=== PATIENT | male | born 1975 | race Caucasian/White ===

== ENCOUNTER 2018-01-19 22:16 | Inpatient (IN) ==
[2018-01-19] MEDS ORDERED: Sod Chloride 0.9% Inj 1,000 ML IV.SIG SCH (23:45)
[2018-01-20] LABS: Baso # (Auto) 0.1 th/mm3 (0.0-0.2); Baso % (Auto) 0.5 % (0.0-2.0); Eos # (Auto) 0.1 th/mm3 (0.0-0.4); Eos % (Auto) 0.9 % (0.0-4.0); Hematocrit 47.4 % (39.0-51.0); Hemoglobin 16.1 gm/dL (13.0-17.0); Lymph # (Auto) 3.1 th/mm3 (1.0-4.8); Lymph % (Auto) 20.7 % (9.0-44.0); Mean Corpuscular Hemoglobin 28.4 pg (27.0-34.0); Mean Corpuscular Volume 83.5 fL (80.0-100.0); Mean Platelet Volume 8.6 fL (7.0-11.0); Mono # (Auto) 1.4 th/mm3 (0.0-0.9); Mono % (Auto) 9.7 % (0.0-8.0); Neut # (Auto) 10.2 th/mm3 (1.8-7.7); Neut % (Auto) 68.2 % (16.0-70.0); Platelet Count 361 th/mm3 (150-450); Red Blood Count 5.68 mil/mm3 (4.50-5.90); Red Cell Distribution Width 13.4 % (11.6-17.2)
[2018-01-20 00:11] LABS: Amphetamine Screen,Urine Neg (Neg); Barbiturate Screen,Urine Neg (Neg); Cannabinoid Screen,Urine Neg (Neg); Cocaine Screen,Urine Neg (Neg)
[2018-01-20 00:13] LABS: Bacteria,Urine Moderate /hpf; Bilirubin,Urine Negative (Negative); Color,Urine Amber (Yellw/Straw); Glucose,Urine (UA) Negative (Negative); Hyaline Casts,Urine 16 /lpf (0-3); Leukocyte Esterase,Urine Negative (Negative); Mucus,Urine Many /lpf (Occasional); Nitrite,Urine Negative (Negative)
[2018-01-20 00:18] LABS: Opiate Screen,Urine Neg (Neg)
[2018-01-20 00:20] LABS: Clarity,Urine Hazy (Clear)
[2018-01-20 00:31] LABS: Alanine Aminotransferase 57 U/L (12-78); Albumin 4.2 g/dL (3.4-5.0); Anion Gap 11 meq/L (5-15); Aspartate Aminotransferase 51 U/L (15-37); Blood Urea Nitrogen 16 mg/dL (7-18); Calcium 9.3 mg/dL (8.5-10.1); Carbon Dioxide 25.3 meq/L (21.0-32.0); Chloride 108 meq/L (98-107); Glomerular Filtration Rate 60 mL/min (>89); Glucose,Random 97 mg/dL (74-106); Potassium 3.5 meq/L (3.5-5.1); Sodium 144 meq/L (136-145)
[2018-01-20 00:41] LABS: Alkaline Phosphatase 74 U/L (45-117); Total Protein 9.1 g/dL (6.4-8.2)
[2018-01-20] MEDS ORDERED: Sod Chloride 0.9% Inj 1,000 ML IV.SIG SCH (01:00)
--- NOTE | 2018-01-20 01:09 | CT ---
EXAM DATE: 01/20/2018 12:48 AM EDT AGE/SEX: 42 years / Male INDICATIONS: Altered mental status. CLINICAL DATA: This is the patient's initial encounter. Patient reports that signs and symptoms have been present for 1 day and indicates a pain score of Nonresponsive. MEDICAL/SURGICAL HISTORY: Non-responsive. Non-responsive. RADIATION DOSE: 56.35 CTDI (mGy) COMPARISON: No prior exams available for comparison. TECHNIQUE: CT of the head without contrast. Using automated exposure control and adjustment of the mA and/or kV according to patient size, radiation dose was kept as low as reasonably achievable to ob tain optimal diagnostic quality images. DICOM format image data is available electronically for revi ew and comparison. FINDINGS: Cerebrum: The ventricles are normal for age. No evidence of midline shift, mass lesion, hemorrhage o r acute infarction. No extraaxial fluid collections are seen. Posterior Fossa: The cerebellum and brainstem are intact. The 4th ventricle is midline. The cerebe llopontine angle is unremarkable. Extracranial: The visualized portion of the orbits is intact. Skull: The calvaria is intact. No evidence of skull fracture. CONCLUSION: 1. No acute intracranial abnormality. . Electronically signed by: Usama Hernadez MD 01/20/2018 1:07 AM EDT
--- NOTE | 2018-01-20 01:23 | XR ---
EXAM DATE: 01/20/2018 1:15 AM EDT AGE/SEX: 42 years / Male INDICATIONS: Altered mental status. CLINICAL DATA: This is the patient's initial encounter. Patient reports that signs and symptoms have been present for 1 day and indicates a pain score of 0/10. MEDICAL/SURGICAL HISTORY: Non-responsive. Non-responsive. COMPARISON: No prior exams available for comparison. FINDINGS: Minimal bibasilar airspace disease. Cardiomediastinal contours are within normal limits. Bony thorax is intact. CONCLUSION: 1. Minimal bibasilar airspace disease, likely atelectasis. Electronically signed by: Usama Hernadez MD 01/20/2018 1:21 AM EDT
--- NOTE | 2018-01-20 03:02 | ED ---
HPI General Chief Complaint: Psychiatric Symptoms Stated Complaint: Psych eval/OBPD Source: patient and EMS Mode of arrival: EMS Limitations: no limitations History of Present Illness HPI Narrative: 42-year-old male presents to the emergency department by EMS transport after please found patient wandering in a [employer] parking lot trying to break into cars. Patient here offers no medical history answers simple yes no to questions denies any recent injury or fall denies any recent fever and denies pain. Patient denies any medical history. No previous evaluations in our EMR. Patient denies any known prior psychiatric history. MD complaint: altered mental status Onset (ago): unknown Duration: constant (This evening since found by police) History of same: No Relieving factors: none Exacerbating factors: none Context: other (Denies) Associated symptoms: denies other symptoms Treatments prior to arrival: none If self harm: other (Denies) Related Data Home Medications Medication Instructions Recorded Confirmed No Known Home Medications 01/19/18 01/19/18 Allergies Allergy/AdvReac Type Severity Reaction Status Date / Time No Known Allergies Allergy Verified 01/19/18 22:48 Review of Systems ROS: all other systems reviewed are negative [facility] Medical History Medical History Patient denies medical problems (Acute) Social History Social History Substance History: Unable to Obtain Smoking Status: Never smoker How Often Do You Have a Drink Containing Alcohol: Never Recent Travel in [facility] within the Last 8 Weeks: No Recent Out of Country Travel within the Last 8 Weeks: No Immunization History Tetanus Immunization: Unsure Hx Influenza Vaccine This Season: No Exam Narrative Exam Narrative: GENERAL: Well-developed well-nourished male in no acute distress no respiratory distress sitting at bedside and then intermittently ambulating about the exam room GCS 14 answers simple questions yes no SKIN: Focused skin assessment warm/dry. HEAD: Atraumatic. Normocephalic. No scalp soft tissue swelling tenderness abrasion or laceration no ecchymosis no bony normality. EYES: Pupils equal and round. No scleral icterus. No injection or drainage. ENT: No nasal bleeding or discharge. Mucous membranes pink and moist. NECK: Trachea midline. No JVD. Supple no nuchal rigidity no meningismus. CARDIOVASCULAR: Increased regular rate and rhythm. No murmur appreciated. RESPIRATORY: No accessory muscle use. Clear to auscultation. Breath sounds equal bilaterally. GASTROINTESTINAL: Abdomen soft, non-tender, nondistended. Hepatic and splenic margins not palpable. MUSCULOSKELETAL: No obvious deformities. No clubbing. No cyanosis. No edema. NEUROLOGICAL: Awake and alert. No obvious cranial nerve deficits. Motor grossly within normal limits. Normal speech. PSYCHIATRIC: Flat mood and affect. Course Initial Documented Vital Signs Temperature 99.3 F 01/19/18 22:20 Pulse Rate 129 H 01/19/18 22:20 Respiratory Rate 18 01/19/18 22:20 Blood Pressure 140/86 01/19/18 22:20 Pulse Oximetry 95 01/19/18 22:20 Last Documented Vital Signs Temperature 98.3 F 01/20/18 02:20 Pulse Rate 91 H 01/20/18 02:20 Respiratory Rate 16 01/20/18 02:20 Blood Pressure 152/94 H 01/20/18 02:20 Pulse Oximetry 97 01/20/18 02:20 Medical Decision Making [facility] Narrative Medical decision making narrative: 42-year-old male presents as a law enforcement [place] act appearing not be being able to care for himself in no acute distress concern for possible injury due to possible disorientation At 3:10 AM patient is medically cleared patient is identified to have mild leukocytosis with normal lactic acid initial tachycardia is resolving after IV fluids patient has noted to have urinary tract infection CT brain noncontrast reveals nothing acute patient has no evidence of any type of injury or trauma neck is supple patient is starting to speak more and is cooperative. Patient is medically cleared for psych evaluation. Medical Screen Exam Complete: Yes Emergency Medical Condition: Yes Differential Diagnosis Differential Diagnosis: Altered mental status, mood disorder, exacerbation anxiety depression bipolar, schizophrenia, sepsis, substance ingestion Medical Records Medical records reviewed: Yes I reviewed the patient's medical records. no prior visits Lab Data Lab results reviewed: Yes I reviewed the patient's lab results. Result diagrams: 01/19/18 22:38 01/19/18 22:38 Lab Results 01/19/18 01/19/18 01/19/18 Range/Units 22:32 22:32 22:38 WBC 15.0 H (4.0-11.0) th/mm3 RBC 5.68 (4.50-5.90) mil/mm3 Hgb 16.1 (13.0-17.0) gm/dL Hct 47.4 (39.0-51.0) % MCV 83.5 (80.0-100.0) fL MCH 28.4 (27.0-34.0) pg MCHC 34.0 (32.0-36.0) % RDW 13.4 (11.6-17.2) % Plt Count 361 (150-450) th/mm3 MPV 8.6 (7.0-11.0) fL Neut % (Auto) 68.2 (16.0-70.0) % Lymph % (Auto) 20.7 (9.0-44.0) % [place] % (Auto) 9.7 H (0.0-8.0) % Eos % (Auto) 0.9 (0.0-4.0) % Baso % (Auto) 0.5 (0.0-2.0) % Neut # (Auto) 10.2 H (1.8-7.7) th/mm3 Lymph # (Auto) 3.1 (1.0-4.8) th/mm3 [place] # (Auto) 1.4 H (0.0-0.9) th/mm3 Eos # (Auto) 0.1 (0.0-0.4) th/mm3 Baso # (Auto) 0.1 (0.0-0.2) th/mm3 WBC Differential . Differential Comment Auto diff final Sodium (136-145) meq/L Potassium (3.5-5.1) meq/L Chloride (98-107) meq/L Carbon Dioxide (21.0-32.0) meq/L Anion Gap (5-15) meq/L BUN (7-18) mg/dL Creatinine (0.60-1.30) mg/dL Estimated GFR (>89) mL/min Random Glucose (74-106) mg/dL Lactic Acid (0.4-2.0) mmol/L Calcium (8.5-10.1) mg/dL Total Bilirubin (0.2-1.0) mg/dL AST (15-37) U/L ALT (12-78) U/L Alkaline Phosphatase (45-117) U/L Total Protein (6.4-8.2) g/dL Albumin (3.4-5.0) g/dL TSH (0.358-3.740) uIU/mL Urine Color Marlin (Yellw/Straw) Urine Clarity Hazy H (Clear) Urine pH 5.0 (5.0-8.5) Ur Specific [place] 1.030 (1.002-1.035) Urine Protein 100 H (Neg-Trace) mg/dL Urine Glucose (UA) Negative (Negative) mg/dL Urine Ketones Trace H (Negative) mg/dL Urine Occult Blood Small H (Negative) Urine Nitrate Negative (Negative) Urine Bilirubin Negative (Negative) Urine Urobilinogen 2.0 H (Less than 2) mg/dL Ur Leukocyte Esterase Negative (Negative) Urine RBC 5 H (0-3) /hpf Urine WBC 3 (0-5) /hpf Urine Bacteria Moderate H (None) /hpf Hyaline Casts 16 (0-3) /lpf Urine Mucus Many H (Occasional) /lpf Micro UA Comment Culture indicated Ur Microscopic Review Not Reportable Urine Culture Comments Culture indicated Salicylates (2.8-20.0) mg/dL Urine Opiates Screen Neg (Neg) Acetaminophen (10.0-30.0) mcg/mL Ur Barbiturates Screen Neg (Neg) Ur Amphetamines Screen Neg (Neg) U Benzodiazepines Scrn Neg (Neg) Urine Cocaine Screen Neg (Neg) U Cannabinoids Screen Neg (Neg) Serum Alcohol (0-5) mg/dL 01/19/18 01/19/18 01/20/18 Range/Units 22:38 22:38 01:05 WBC (4.0-11.0) th/mm3 RBC (4.50-5.90) mil/mm3 Hgb (13.0-17.0) gm/dL Hct (39.0-51.0) % MCV (80.0-100.0) fL MCH (27.0-34.0) pg MCHC (32.0-36.0) % RDW (11.6-17.2) % Plt Count (150-450) th/mm3 MPV (7.0-11.0) fL Neut % (Auto) (16.0-70.0) % Lymph % (Auto) (9.0-44.0) % [place] % (Auto) (0.0-8.0) % Eos % (Auto) (0.0-4.0) % Baso % (Auto) (0.0-2.0) % Neut # (Auto) (1.8-7.7) th/mm3 Lymph # (Auto) (1.0-4.8) th/mm3 [place] # (Auto) (0.0-0.9) th/mm3 Eos # (Auto) (0.0-0.4) th/mm3 Baso # (Auto) (0.0-0.2) th/mm3 WBC Differential Differential Comment Sodium 144 (136-145) meq/L Potassium 3.5 (3.5-5.1) meq/L Chloride 108 H (98-107) meq/L Carbon Dioxide 25.3 (21.0-32.0) meq/L Anion Gap 11 (5-15) meq/L BUN 16 (7-18) mg/dL Creatinine 1.33 H (0.60-1.30) mg/dL Estimated GFR 60 L (>89) mL/min Random Glucose 97 (74-106) mg/dL Lactic Acid 1.3 (0.4-2.0) mmol/L Calcium 9.3 (8.5-10.1) mg/dL Total Bilirubin 1.0 (0.2-1.0) mg/dL AST 51 H (15-37) U/L ALT 57 (12-78) U/L Alkaline Phosphatase 74 (45-117) U/L Total Protein 9.1 H (6.4-8.2) g/dL Albumin 4.2 (3.4-5.0) g/dL TSH 2.300 (0.358-3.740) uIU/mL Urine Color (Yellw/Straw) Urine Clarity (Clear) Urine pH (5.0-8.5) Ur Specific [place] (1.002-1.035) Urine Protein (Neg-Trace) mg/dL Urine Glucose (UA) (Negative) mg/dL Urine Ketones (Negative) mg/dL Urine Occult Blood (Negative) Urine Nitrate (Negative) Urine Bilirubin (Negative) Urine Urobilinogen (Less than 2) mg/dL Ur Leukocyte Esterase (Negative) Urine RBC (0-3) /hpf Urine WBC (0-5) /hpf Urine Bacteria (None) /hpf Hyaline Casts (0-3) /lpf Urine Mucus (Occasional) /lpf Micro UA Comment Ur Microscopic Review Urine Culture Comments Salicylates Less than 1.7 L (2.8-20.0) mg/dL Urine Opiates Screen (Neg) Acetaminophen Less than 2.0 L (10.0-30.0) mcg/mL Ur Barbiturates Screen (Neg) Ur Amphetamines Screen (Neg) U Benzodiazepines Scrn (Neg) Urine Cocaine Screen (Neg) U Cannabinoids Screen (Neg) Serum Alcohol Less than 3 (0-5) mg/dL Imaging Data Radiologist's impression: Chest X-Ray 01/20/18 00:00 CONCLUSION: 1. Minimal bibasilar airspace disease, likely atelectasis. Head CT 01/20/18 00:01 CONCLUSION: 1. No acute intracranial abnormality. . ECG Data EKG Prior to Arrival: No Attestation: I personally reviewed and interpreted this ECG as follows: Prior ECG tracings: not available for review Interpretation: EKG: Sinus tachycardia rate [address] elevation injury pattern or ectopy noted nonspecific ST-T changes Discharge Plan Discharge Disposition Patient Disposition: 30 Still Patient Discharge Condition Condition: Stable Discharge Details Diagnosis: Mood disorder, UTI (urinary tract infection) Physicians Team ED Provider: MACIEJ DE LA CRUZ Rxs /Orders / Referrals /Forms Prescriptions: No Action No Known Home Medications RF: 0 Discharge Interventions Interventions: Vital Signs Last Done: 01/20/18 02:20 Status ED Status: With Nurse
--- NOTE | 2018-01-20 12:01 | ECG ---
Date Performed: 01/19/2018 Time Performed: 23:04:27 PTAGE: 42 years EKG: SINUS TACHYCARDIA NONSPECIFIC ST & T-WAVE ABNORMALITY ABNORMAL RHYTHM ECG NO PREVIOUS TRACING DOCTOR: Panchito Hope Interpretating Date/Time 01/20/2018 11:57:20
--- NOTE | 2018-01-20 14:54 | P.CONPSY ---
Provisional Diagnosis Admission Date: January 19, 2018 22:16 [place] I.: 1. Unspecified psychosis Rule out primary psychotic disorder +/- catatonia Rule out psychosis due to occult substance use Rule out psychosis/delirium due to GMC Rule out malingering psychiatric symptoms to avoid legal consequences [place] II.: Deferred History of Present Illness Service: Psychiatry Consult date: 01/20/18 Requesting Physician: Tory Michael Reason for Consult: [place] act Primary Care Provider: UNKNOWN History of Present Illness: Mr. Aly is a 42-year-old male of uncertain past psychiatric history who presents under a [place] act by law enforcement alleging that the patient was walking around a [employer] parking lot appearing quite confused. According to ED provider notes, he may have been trying to break into cars. Reviewing the electronic medical record, it appears this is patient's first visit to [place]. Patient seen and examined. Chart reviewed. Case discussed with nursing staff. Per nursing staff, the patient has been pacing around psychiatric emergency room as if in a daze. I find the patient in his room. He is wringing his hands and staring at a point in the floor mouthing words silently to himself. He does engage with me and is able to follow simple commands. He even vocalizes a little bit, for example denying any psychiatric history. He is noncommittal when asked about suicidal or homicidal ideation or hallucinations. Psychiatric interview is severely limited by the patient's difficulty in communicating his mental status. He does not appear to be in any acute physical distress. He is unable to provide me with any contact information for potential collateral information sources. Review of Systems unobtainable due to mental status PMFSH - History History Provided By: Patient, Law Enforcement - Medical History Medical History: Medical History (Last Reviewed 01/20/18 @ 02:59 by Tory Michael MD) Patient denies medical problems - Tobacco History Tobacco Use In Past 30 Days: No Smoking Status: Never smoker - Alcohol History How Often Do You Have a Drink Containing Alcohol: Never - Substance Use History Substance History: Unable to Obtain - Travel History Recent Travel in the [place] Within the Last 8 Weeks: No Recent Travel Out of the Country Within the Last 8 Weeks: No - Immunization History Tetanus Immunization: Unsure Hx Influenza Vaccine This Season: No Medications and Allergies Active Medications: Active Medications Sodium Chloride (Ns Inj) 1,000 mls @ 0 mls/hr IV.SIG BOLUS ОЛЕГ Last Infusion: 01/20/18 00:44 Dose: Infused Sodium Chloride (Ns Inj) 1,000 mls @ 0 mls/hr IV.SIG BOLUS ОЛЕГ Allergies Allergy/AdvReac Type Severity Reaction Status Date / Time No Known Allergies Allergy Verified 01/19/18 22:48 Home Medications Medication Instructions Recorded Confirmed Type No Known Home Medications 01/19/18 01/19/18 History Exam Vital signs: Vital Signs 01/19/18 22:20 01/19/18 22:45 01/20/18 00:43 Temperature 99.3 F Pulse Rate 129 H 118 H 96 H Respiratory Rate 18 18 18 Blood Pressure 140/86 146/87 H 156/90 H Pulse Oximetry 95 96 97 01/20/18 02:20 01/20/18 06:42 01/20/18 09:15 Temperature 98.3 F Pulse Rate 91 H 82 88 Respiratory Rate 16 18 16 Blood Pressure 152/94 H 142/82 H 159/102 H Pulse Oximetry 97 96 98 01/20/18 12:43 Temperature 98.7 F Pulse Rate 90 Respiratory Rate 18 Blood Pressure 154/93 H Pulse Oximetry 97 Intake & Output 01/19/18 01/20/18 01/20/18 18:59 06:59 18:59 Intake Total 1100 / 1100 Balance 1100 / 1100 Weight 104.326 kg Intake: IV 1100 / 1100 NS Inj 1,000 ML @ Wide Open IV. 1000 / 1000 SIG BOLUS ОЛЕГ Rx#:[id number] Rocephin Inj 2,000 MG In NS Inj 100 / 100 100 ML @ 200 mls/hr IV.SIG ONCE ONE Rx#:[id number] Narrative: Physical examination completed by ED provider. On my examination today, the patient appears to be in no acute physical distress. Besides the ringing of his hands, no other motor abnormalities noted. No posturing noted. No hand tremor, no diaphoresis, no mydriasis, no other signs of GABAergic withdrawal. No piloerection, lacrimation, rhinorrhea or signs of opiate withdrawal. Labs and vital signs reviewed: Laboratory Results - last 24 hr 01/19/18 01/19/18 01/19/18 22:32 22:32 22:38 WBC 15.0 H RBC 5.68 Hgb 16.1 Hct 47.4 MCV 83.5 MCH 28.4 MCHC 34.0 RDW 13.4 Plt Count 361 MPV 8.6 Neut % (Auto) 68.2 Lymph % (Auto) 20.7 [place] % (Auto) 9.7 H Eos % (Auto) 0.9 Baso % (Auto) 0.5 Neut # (Auto) 10.2 H Lymph # (Auto) 3.1 [place] # (Auto) 1.4 H Eos # (Auto) 0.1 Baso # (Auto) 0.1 WBC Differential . Differential Comment Auto diff final Sodium Potassium Chloride Carbon Dioxide Anion Gap BUN Creatinine Estimated GFR Random Glucose Lactic Acid Calcium Total Bilirubin AST ALT Alkaline Phosphatase Total Protein Albumin TSH Urine Color Marlin Urine Clarity Hazy H Urine pH 5.0 Ur Specific [place] 1.030 Urine Protein 100 H Urine Glucose (UA) Negative Urine Ketones Trace H Urine Occult Blood Small H Urine Nitrate Negative Urine Bilirubin Negative Urine Urobilinogen 2.0 H Ur Leukocyte Esterase Negative Urine RBC 5 H Urine WBC 3 Urine Bacteria Moderate H Hyaline Casts 16 Urine Mucus Many H Micro UA Comment Culture indicated Ur Microscopic Review Not Reportable Urine Culture Comments Culture indicated Salicylates Urine Opiates Screen Neg Acetaminophen Ur Barbiturates Screen Neg Ur Amphetamines Screen Neg U Benzodiazepines Scrn Neg Urine Cocaine Screen Neg U Cannabinoids Screen Neg Serum Alcohol 01/19/18 01/19/18 01/20/18 22:38 22:38 01:05 WBC RBC Hgb Hct MCV MCH MCHC RDW Plt Count MPV Neut % (Auto) Lymph % (Auto) [place] % (Auto) Eos % (Auto) Baso % (Auto) Neut # (Auto) Lymph # (Auto) [place] # (Auto) Eos # (Auto) Baso # (Auto) WBC Differential Differential Comment Sodium 144 Potassium 3.5 Chloride 108 H Carbon Dioxide 25.3 Anion Gap 11 BUN 16 Creatinine 1.33 H Estimated GFR 60 L Random Glucose 97 Lactic Acid 1.3 Calcium 9.3 Total Bilirubin 1.0 AST 51 H ALT 57 Alkaline Phosphatase 74 Total Protein 9.1 H Albumin 4.2 TSH 2.300 Urine Color Urine Clarity Urine pH Ur Specific [place] Urine Protein Urine Glucose (UA) Urine Ketones Urine Occult Blood Urine Nitrate Urine Bilirubin Urine Urobilinogen Ur Leukocyte Esterase Urine RBC Urine WBC Urine Bacteria Hyaline Casts Urine Mucus Micro UA Comment Ur Microscopic Review Urine Culture Comments Salicylates Less than 1.7 L Urine Opiates Screen Acetaminophen Less than 2.0 L Ur Barbiturates Screen Ur Amphetamines Screen U Benzodiazepines Scrn Urine Cocaine Screen U Cannabinoids Screen Serum Alcohol Less than 3 Impressions Chest X-Ray 01/20/18 00:00 CONCLUSION: 1. Minimal bibasilar airspace disease, likely atelectasis. Head CT 01/20/18 00:01 CONCLUSION: 1. No acute intracranial abnormality. . Mental Status Examination Appearance: Disheveled Consciousness: Alert Orientation: Person Motor Activity: Normal gait Speech: Other (chiefly mute) Language: Other (limited sample) Attention and Concentration: Easily distracted Mood: Other (unable to assess) Affect: Blunt Thought Process & Associations: Other (unable to assess) Hallucination Type: Auditory (appears int stim) Delusion Type: Other (unable to assess) Suicidal Ideation: No (No SI voiced) Homicidal Ideation: No (No HI voiced) Mental Status Exam Remarks: MSE is limited as the patient is largely mute. Insight and judgment are presently unclear. Assessment and Plan - Assessment (1) Unspecified psychosis Code(s): F29 - Unspecified psychosis not due to a substance or known physiological condition Status: Acute - Plan Plan: 42-year-old male with psychiatric history as detailed above who presents under a [place] act. On my examination today, the patient presents as distracted, internally stimulated and largely mute. He does have some purposeless motor movements, namely wringing his hands. I wonder about a catatonia, although the differential diagnosis for the patient's condition is broad, as detailed above. I will defer further workup of patient's AMS to ED provider and inpatient team. Could also consider Ativan challenge for possible catatonia. Patient continues to meet [place] Act criteria, and the BA will be left in place. We presently have no capacity on her high acuity unit, and so the patient will be placed on the wait list at [facility] for transfer to [facility] once a bed is available. Thank you very much for this consultation. Justification for Continued Inpatient Stay: See above Discharge Planning: To [facility] under BA.
[2018-01-22] MEDS ORDERED: Acetaminophen 325 MG Tablet PO PRN (14:25)
[2018-01-22] MEDS ORDERED: Aluminum/Magnesium/Simethacone Susp 30 ML UDC PO PRN (14:25)
[2018-01-22] MEDS ORDERED: Bisacodyl 10 MG Supp RECTAL PRN (14:25)
[2018-01-22] MEDS: Senna/Docusate Sodium 8.6/50 MG Tablet PO SCH (21:34)
[2018-01-23 07:35] LABS: Chloride 102 meq/L (98-107); Glucose,Random 94 mg/dL (74-106); Potassium 3.2 meq/L (3.5-5.1); Sodium 143 meq/L (136-145)
[2018-01-23 07:39] LABS: Anion Gap 10 meq/L (5-15); Blood Urea Nitrogen 9 mg/dL (7-18); Calcium 8.7 mg/dL (8.5-10.1); Carbon Dioxide 30.6 meq/L (21.0-32.0); Chol/HDL Ratio 3.35 Ratio; Cholesterol 146 mg/dL (120-200); Glomerular Filtration Rate Greater Than 89 mL/min (>89); HDL Cholesterol 43.5 mg/dL (40.0-60.0); LDL Cholesterol,Calculated 86 mg/dL (0-99); Triglycerides 85 mg/dL (42-150)
[2018-01-23] MEDS: Senna/Docusate Sodium 8.6/50 MG Tablet PO SCH (08:22)
--- NOTE | 2018-01-23 10:08 | P.HPPSY ---
Provisional Diagnosis Admission Date: January 22, 2018 14:24 [place] I.: 1. Schizophrenia, paranoid type, acute exacerbation [place] II.: Deferred Competence Certification of Person's Competence To Provide Express and Informed Consent I have personally examined Jan Aly, a person being served at [facility] on, January 23, 2018 1008. Express and informed consent means consent voluntarily given in writing, by a competent person, after sufficient explanation and disclosure of the subject matter involved to enable the person to make a knowing and willful decision without any element of force, fraud, deceit, duress, or other form of constraint or coercion. This person is 18 years of age or older, is not now known to be incompetent to consent to treatment with a guardian advocate, and does not have a health care surrogate or proxy currently making medical treatment decisions. I have found this person to be one of the following: [X] Competent to provide express and informed consent, as defined above, for voluntary admission to this facility and is competent to provide express and informed consent for treatment. He/she has the consistent capacity to make well reasoned, willful, and knowing decisions concerning his or her medical or mental health treatment. The person fully and consistently understands the purpose of the admission for examination/placement and is fully capable of personally exercising all rights assured under [place] Incompetent to provide express and informed consent to voluntary admission, and this is incompetent to provide express and informed consent to treatment. The person must be transferred to involuntary status and a petition for a guardian advocate filed with the Circuit Court. [] Refusing to provide express and informed consent to voluntary admission but is competent to provide express and informed consent for treatment. The person must be discharged or transferred to involuntary status. Form shall be completed within 24 hours of a person's arrival at the receiving facility and filed in the clinical record of each person: 1. Admitted on a voluntary basis 2. Permitted to provide express and informed consent to his/her own treatment 3. Allowed to transfer from involuntary to voluntary status 4. Prior to permitting a person to consent to his or her own treatment after having been previously found incompetent to consent to treatment. History of Present Illness Capacity: Has capacity Chief Complaint: Psychosis History of Present Illness: Mr. Aly is a 42-year-old male with a reported history of schizophrenia who presented initially under a [place] act by law enforcement. I saw the patient in the ED and consultation and recommended [facility]. Apparently, no bed was available there and so the patient was admitted to the high acuity unit here at [facility] when a bed became available on our unit. Electronic medical record reviewed. Patient seen and examined with nurse and counselor. Chart reviewed. Case discussed with nursing staff. Case discussed with counselor. I was notified by the Department contracts paralegal that the patient's [place] act has as of 3 AM this morning. On my examination today, the patient is much more conversant and interactive compared to her previous contact. He presents as somewhat malodorous. He is anxious. He exhibits thought blocking. Paranoia is present. He admits to having audiovisual hallucinations "before" and remains internally stimulated now. When I ask him about why he was trying to break into cars in the [employer] parking lot he says "I was trying to get something to drink." He tells me that he needs to find a place to stay. No depressive or hypomanic/manic symptoms. Remainder of the psychiatric ROS is negative. No acute physical complaints. Past psychiatric history: The patient reports a history of schizophrenia. He followed with a psychiatrist in [place] but has been away from that state for over a year. He used to be on Risperdal and says that Risperdal was the only medication that really worked for him but he has been off of that medication for over a month. He reports that he was psychiatrically admitted years ago. He denies a history of suicide attempts. Family history: Patient denies a family history of serious mental illness or suicide. Chemical dependency history: The patient denies any abuse of drugs or alcohol. Social history: The patient moved from [place] a year ago. He is presently homeless. The nurse informs me that the patient was found with house keys and car keys, and when I ask him about these things he says that he used to have a place to stay and a Prius but he cannot go back there, nor can he have access to his car. When I try to ask him about why, he becomes quite paranoid and will not answer. He is high school educated. He collects $1000 per month in disability. He denies any history. He denies any legal history. He endorses rastafari beliefs. He denies any history of abuse. Past medical history: The patient denies any history of medical problems. Medications: Patient takes no home medications. Allergies: Patient denies any allergies. - Inpatient Certification I certify that the inpatient services were ordered in accordance with Medicare regulations governing the order. This includes certification that hospital inpatient services are reasonable and necessary and in the case of services not specified as inpatient-only under 42 CFR 419.22(n), that they are appropriately provided as inpatient services in accordance to with the 2-midnight benchmark under 43 CFR 412.3(e) I certify that inpatient psychiatric hospital services are medically necessary. Evaluation and treatment and/or diagnostic testing are expected to improve the patient's condition. The patient needs on a daily basis, active treatment furnished directly by or requiring the supervision of inpatient psychiatric facility personnel. Estimated Total Length of Stay (Days): 7 Plans for Post Hospital Care: Not yet determined Review of Systems All other systems reviewed negative except as stated in HPI PMFSH - History History Provided By: Patient - Medical History Medical History: Medical History (Last Reviewed 01/20/18 @ 02:59 by Tory Michael MD) Patient denies medical problems - Tobacco History Second Hand Smoke Exposure: No Tobacco Use In Past 30 Days: No Smoking Status: Never smoker - Alcohol History How Often Do You Have a Drink Containing Alcohol: Never - Substance Use History Substance History: No History of Abuse - Travel History Recent Travel in the [place] Within the Last 8 Weeks: No Recent Travel Out of the Country Within the Last 8 Weeks: No - Immunization History Tetanus Immunization: Unable to Assess Hx Influenza Vaccine This Season: Unable to Assess Quality Measures - Patient Strengths Patient's strengths (minimum of 2): In a monitored setting. Verbally fluent. Medications and Allergies Active Medications: Active Medications Acetaminophen (Tylenol) 650 mg PO Q4H PRN PRN Reason: Pain 1-5 or Temp >101F Al Hydrox/Mg Hydrox/Simethicone (Mag-Al Plus Susp Liq) 30 ml PO Q6H PRN PRN Reason: DYSPEPSIA Al Hydroxide/Mg Hydroxide (Milk Of Magnesia Liq) 30 ml PO Q12H PRN PRN Reason: Mild Constipation Bisacodyl (Dulcolax Supp) 10 mg RECTAL DAILY PRN PRN Reason: SEVERE CONSITIPATION Sodium Chloride (Ns Inj) 1,000 mls @ 0 mls/hr IV.SIG BOLUS ОЛЕГ Last Infusion: 01/20/18 00:44 Dose: Infused Sodium Chloride (Ns Inj) 1,000 mls @ 0 mls/hr IV.SIG BOLUS ОЛЕГ Lactulose (Lactulose Liq) 30 ml PO DAILY PRN PRN Reason: SEVERE CONSITIPATION Senna/Docusate Sodium (Sulma-Colace) 1 tab PO BID ОЛЕГ Last Admin: 01/23/18 08:22 Dose: Not Given Allergies Allergy/AdvReac Type Severity Reaction Status Date / Time No Known Allergies Allergy Verified 01/19/18 22:48 Home Medications Medication Instructions Recorded Confirmed Type No Known Home Medications 01/19/18 01/19/18 History Results - Labs CBC & Chem 7: 01/19/18 22:38 01/23/18 05:40 Labs: Laboratory Results - last 24 hr 01/23/18 05:40 Sodium 143 Potassium 3.2 L Chloride 102 Carbon Dioxide 30.6 Anion Gap 10 BUN 9 Creatinine 0.85 Estimated GFR Greater than 89 Random Glucose 94 Calcium 8.7 Triglycerides 85 Cholesterol 146 LDL Cholesterol, Calc 86 HDL Cholesterol 43.5 Cholesterol/HDL Ratio 3.35 Labs reviewed. Leukocytosis noted. Chest X-Ray 01/20/18 00:00 CONCLUSION: 1. Minimal bibasilar airspace disease, likely atelectasis. Head CT 01/20/18 00:01 CONCLUSION: 1. No acute intracranial abnormality. . Microbiology 01/20/18 01:00 Blood - Peripheral Aerobic Blood Culture - Preliminary No growth in 2 days 01/20/18 01:00 Blood - Peripheral Anaerobic Blood Culture - Preliminary No growth in 2 days 01/20/18 01:05 Blood - Peripheral Aerobic Blood Culture - Preliminary No growth in 2 days 01/20/18 01:05 Blood - Peripheral Anaerobic Blood Culture - Preliminary No growth in 2 days 01/19/18 22:32 Clean Catch Urine Urine Culture - Final 10-50,000 cfu/mL mixed codey (probable contaminants) EKG read as sinus tachycardia with a QTC of 413 ms. Exam Vital signs: Vital Signs 01/22/18 14:38 01/22/18 17:26 01/23/18 05:23 Temperature 97.1 F L 97.7 F Pulse Rate 97 H 96 H 83 Respiratory Rate 20 17 18 Blood Pressure 135/84 134/88 141/98 H Pulse Oximetry 97 95 98 Intake & Output 01/22/18 01/23/18 01/23/18 18:59 06:59 18:59 Weight 110.8 kg Other: Weight On Admission 110.8 kg Narrative: Physical examination was completed by ED provider. On my examination today, the patient appears to be in no acute physical distress. No motor abnormalities noted. No signs of catatonia noted. Labs and vital signs reviewed. Mental Status Examination Appearance: Disheveled Consciousness: Alert Orientation: Person, Place (At least) Motor Activity: Normal gait Speech: Hesitant Language: Adequate Fund of Knowledge: Adequate Attention and Concentration: Easily distracted Memory: Impaired (Psychosis interferes) Mood: Anxious Affect: Anxious Thought Process & Associations: Intact Thought Content: Hallucinations, Delusional Hallucination Type: Other (Appears internally stimulated) Delusion Type: Paranoid Suicidal Ideation: No Suicidal Plan: No Suicidal Intention: No Homicidal Ideation: No Homicidal Plan: No Homicidal Intention: No Insight: Poor Judgment: Poor Assessment and Plan - Assessment (1) Schizophrenia, paranoid, chronic with acute exacerbation Code(s): F20.0 - Paranoid schizophrenia Status: Acute - Plan Plan: 42-year-old male with psychiatric history as detailed above who presented initially under a [place] act, now . On my examination today, the patient presents as disheveled, internally stimulated, anxious and paranoid. He reports that he has been off of his Risperdal for over a month now. He is in need of psychiatric stabilization and is agreeable to remaining on the inpatient unit for this purpose. Admit inpatient. Voluntary status. Initiate Risperdal 1 mg twice daily with plans to titrate to effect to target psychosis. Atarax as needed for anxiety. Melatonin as needed for sleep. Clonidine as needed for elevated blood pressures. Recheck CBC. Vitals every shift. Counselor to see. Collateral information. Disposition planning. Estimated length of stay: 5-7 days. Justification for Continued Inpatient Stay: See above Discharge Planning: Pending psychiatric stabilization Request Healthcare Surrogate/Guardian Advocate?: No
[2018-01-23] MEDS: risperiDONE 1 MG ODT PO SCH ×2 (10:47→20:32)
[2018-01-23 10:54] LABS: Hemoglobin A1c 5.2 % (4.3-6.0)
[2018-01-23 12:24] LABS: Baso # (Auto) 0.1 th/mm3 (0.0-0.2); Baso % (Auto) 0.9 % (0.0-2.0); Eos # (Auto) 0.6 th/mm3 (0.0-0.4); Eos % (Auto) 5.5 % (0.0-4.0); Hematocrit 47.5 % (39.0-51.0); Hemoglobin 15.9 gm/dL (13.0-17.0); Lymph # (Auto) 2.6 th/mm3 (1.0-4.8); Lymph % (Auto) 24.3 % (9.0-44.0); Mean Corpuscular HGB Conc 33.5 % (32.0-36.0); Mean Corpuscular Hemoglobin 28.7 pg (27.0-34.0); Mean Corpuscular Volume 85.7 fL (80.0-100.0); Mean Platelet Volume 8.6 fL (7.0-11.0); Mono # (Auto) 0.7 th/mm3 (0.0-0.9); Neut # (Auto) 6.6 th/mm3 (1.8-7.7); Neut % (Auto) 62.3 % (16.0-70.0); Platelet Count 335 th/mm3 (150-450); Red Blood Count 5.54 mil/mm3 (4.50-5.90); Red Cell Distribution Width 13.3 % (11.6-17.2); White Blood Count 10.6 th/mm3 (4.0-11.0)
[2018-01-23] MEDS ORDERED: Melatonin 5 MG Tablet PO PRN (21:00)
[2018-01-24] MEDS: risperiDONE 1 MG ODT PO SCH ×2 (08:18→20:11)
--- NOTE | 2018-01-24 10:05 | P.PNPSY ---
Subjective Chief Complaint: Psychosis Remarks: Patient seen and examined with nurse. Chart reviewed. Case discussed with nursing staff. No behavioral issues noted overnight. On my examination today, patient is calm and cooperative. He denies any SI or HI. Denies any AVH. Denies any paranoia. Affect remains a little flat and he is somewhat hypoverbal. Denies side effects from medications. He did decline his potassium supplement and I have explained to him the rationale for this medication, but he prefers not to take it. No physical complaints. Vital Signs Temp Pulse Resp BP Pulse Ox 01/24/18 06:12 97.9 F 94 H 16 120/83 98 Labs reviewed. No new labs. Microbiology 01/20/18 01:00 Aerobic Blood Culture - Preliminary Blood - Peripheral No growth in 4 days Anaerobic Blood Culture - Preliminary No growth in 4 days 01/20/18 01:05 Aerobic Blood Culture - Preliminary Blood - Peripheral No growth in 4 days Anaerobic Blood Culture - Preliminary No growth in 4 days Review of Systems All other systems reviewed negative except as stated in HPI Mental Status Examination Appearance: Appropriate (Fair grooming) Consciousness: Alert Orientation: Person, Place (At least) Motor Activity: Normal gait Speech: Hesitant Language: Adequate Fund of Knowledge: Adequate Attention and Concentration: Easily distracted Memory: Impaired (Psychosis interferes) Mood: Appropriate Affect: Flat Thought Process & Associations: Intact Thought Content: Appropriate Hallucination Type: None Delusion Type: None Suicidal Ideation: No Suicidal Plan: No Suicidal Intention: No Homicidal Ideation: No Homicidal Plan: No Homicidal Intention: No Insight: Poor Judgment: Poor Assessment and Plan - Assessment (1) Schizophrenia, paranoid, chronic with acute exacerbation Code(s): F20.0 - Paranoid schizophrenia Status: Acute - Plan Plan: Continue Risperdal as ordered for now. To consider further titration of this medication. I will plan to discuss with patient his option regarding long- acting injectable. Continue other medications and care as ordered. Justification for Continued Inpatient Stay: Risk for decompensation in less restrictive environment. Discharge Planning: Pending psychiatric stabilization. Request Healthcare Surrogate/Guardian Advocate?: No
[2018-01-25] MEDS: risperiDONE 1 MG ODT PO SCH ×2 (08:59→20:26)
--- NOTE | 2018-01-25 11:25 | P.PNPSY ---
Subjective Chief Complaint: Psychosis Remarks: Patient seen and examined with counselor. Chart reviewed. Case discussed with nursing staff. No behavioral issues noted. On my examination today, the patient continues to display some thought blocking. He denies any SI or HI. Denies AVH. Denies side effects from medications. No physical complaints. Vital Signs Temp Pulse Resp BP Pulse Ox 01/25/18 05:58 97.5 F L 93 H 17 119/75 97 01/24/18 17:42 97.5 F L 94 H 18 123/80 97 Intake and Output 01/25/18 01/25/18 01/25/18 06:59 14:59 22:59 Other: Weight 113.2 kg Labs reviewed. No new labs. Review of Systems All other systems reviewed negative except as stated in HPI Mental Status Examination Appearance: Appropriate (Fair grooming) Consciousness: Alert Orientation: Person, Place (At least) Motor Activity: Normal gait, Other (No motor abnormalities noted) Speech: Unremarkable Language: Adequate Fund of Knowledge: Adequate Attention and Concentration: Adequate Memory: Unremarkable Mood: Appropriate Affect: Blunt Thought Process & Associations: Intact Thought Content: Appropriate Hallucination Type: None Delusion Type: None Suicidal Ideation: No Suicidal Plan: No Suicidal Intention: No Homicidal Ideation: No Homicidal Plan: No Homicidal Intention: No Insight: Poor Judgment: Poor Assessment and Plan - Assessment (1) Schizophrenia, paranoid, chronic with acute exacerbation Code(s): F20.0 - Paranoid schizophrenia Status: Acute - Plan Plan: I suggested to the patient that we might consider a modest dose increase in his Risperdal to target residual thought blocking, but the patient declines this. I also suggested long-acting injectable antipsychotic, but the patient declines this as well. He would like to continue with current dose of Risperdal pills for now. Continue to monitor on inpatient unit. Continue other medications and care as ordered. Justification for Continued Inpatient Stay: Risk for decompensation in less restrictive environment. Discharge Planning: Counselor working on placement. Request Healthcare Surrogate/Guardian Advocate?: No
[2018-01-26] MEDS: risperiDONE 1 MG ODT PO SCH ×2 (08:01→21:26)
--- NOTE | 2018-01-26 10:20 | P.PNPSY ---
Subjective Chief Complaint: Psychosis Remarks: Patient seen and examined with nurse and counselor. Chart reviewed. Case discussed with nursing staff. Case discussed in treatment team. Counselor working on placement options. On my examination today, the patient remains somewhat internally stimulated. He denies SI or HI. Denies paranoia. I do note that the patient has some movements of his feet, but he reports that this is chronic and not exacerbated by antipsychotic treatment. He denies side effects from medications generally. He is agreeable to modest titration of his Risperdal today to target residual psychotic symptoms but remains opposed to long-acting injectable. No physical complaints. Vital Signs Temp Pulse Resp BP Pulse Ox 01/26/18 06:19 97.5 F L 115/84 01/25/18 17:45 97.2 F L 92 H 18 111/79 97 Labs reviewed. No new labs. Review of Systems All other systems reviewed negative except as stated in HPI Mental Status Examination Appearance: Appropriate (Fair grooming) Consciousness: Alert Orientation: Person, Place (At least) Motor Activity: Normal gait, Other (Except as above, no motor abnormalities noted. No hand tremor, no dystonia, no dyskinesia.) Speech: Unremarkable Language: Adequate Fund of Knowledge: Adequate Attention and Concentration: Adequate Memory: Unremarkable Mood: Appropriate Affect: Blunt Thought Process & Associations: Intact Thought Content: Appropriate Hallucination Type: Auditory (Mildly internally stimulated) Delusion Type: None Suicidal Ideation: No Suicidal Plan: No Suicidal Intention: No Homicidal Ideation: No Homicidal Plan: No Homicidal Intention: No Insight: Poor Judgment: Poor Assessment and Plan - Assessment (1) Schizophrenia, paranoid, chronic with acute exacerbation Code(s): F20.0 - Paranoid schizophrenia Status: Acute - Plan Plan: Titrate Risperdal to 1.5 mg twice daily. Continue to monitor on the inpatient unit. Continue other medications and care as ordered. Justification for Continued Inpatient Stay: Medication changes. Resolving impairment in reality construction. High risk for decompensation in less restrictive environment. Discharge Planning: Possible placement. Request Healthcare Surrogate/Guardian Advocate?: No
[2018-01-26] MEDS: risperiDONE 0.5 MG ODT PO SCH ×2 (11:10→21:26)
--- NOTE | 2018-01-26 13:42 | P.TTN ---
- Patient Problems Problems: 1. Discharge planning 2. Medication compliance 3. Knowledge deficit 4. Lack of coping skills - Progress Toward Goals Provider Present: Dr. Jesse Benavides (January 26, 2018 Dr. Benavides is titrating medications, counselor Andrei will seek placement) Psychiatric Counselors Present: Andrei Lang Jr., BREANA (Andrei establish contact with [facility], they came to assess patient today and patient will be admitted to their facility on January 29, 2018. [facility] will provide transport) Group Spec/RT/OT/WALDRON Present: CHIVO Zhang (Patient attends select groups ) - Documentation Teaching Recipient: Patient
[2018-01-27] MEDS: risperiDONE 1 MG ODT PO SCH ×2 (08:46→20:16)
[2018-01-27] MEDS: risperiDONE 0.5 MG ODT PO SCH ×2 (08:46→20:15)
--- NOTE | 2018-01-27 15:26 | P.PNPSY ---
Subjective Chief Complaint: Psychosis Remarks: Pt seen and discussed with staff. He was admitted due to acute exacerbation of schizophrenia. He has been compliant with medications. He has been isolative and only coming out for meals. He is withdrawn with prominent negative symptoms. He denies SI/HI Mental Status Examination Appearance: Appropriate (Fair grooming) Consciousness: Alert Orientation: Person, Place (At least) Motor Activity: Normal gait, Other (Except as above, no motor abnormalities noted. No hand tremor, no dystonia, no dyskinesia.) Speech: Unremarkable Language: Adequate Fund of Knowledge: Adequate Attention and Concentration: Adequate Memory: Unremarkable Mood: Other (calm) Affect: Blunt Thought Process & Associations: Intact Thought Content: Appropriate Hallucination Type: Auditory ( internally stimulated) Delusion Type: None Suicidal Ideation: No Suicidal Plan: No Suicidal Intention: No Homicidal Ideation: No Homicidal Plan: No Homicidal Intention: No Insight: Poor Judgment: Poor Assessment and Plan - Assessment (1) Schizophrenia, paranoid, chronic with acute exacerbation Code(s): F20.0 - Paranoid schizophrenia Status: Acute - Plan Plan: Continue current tx plan Justification for Continued Inpatient Stay: impairments in reality testing Request Healthcare Surrogate/Guardian Advocate?: No
[2018-01-28] MEDS: risperiDONE 1 MG ODT PO SCH ×2 (08:22→20:23)
[2018-01-28] MEDS: risperiDONE 0.5 MG ODT PO SCH ×2 (08:22→20:24)
--- NOTE | 2018-01-28 13:17 | P.PNPSY ---
Subjective Chief Complaint: Psychosis Remarks: Medical record reviewed and discussed with nursing staff. ANGELA Kelley and I met with patient in the day room. Patient is sitting quietly in the corner watching television. Nursing staff report that his is seclusive most of the time and thought blocking. Patient states that he is sleeping well and that he feels that his medications are helping. Discharge planning is in progress. Review of Systems All other systems reviewed negative except as stated in HPI Mental Status Examination Appearance: Appropriate (Fair grooming) Consciousness: Alert Orientation: Person, Place (At least) Motor Activity: Normal gait, Other (Except as above, no motor abnormalities noted. No hand tremor, no dystonia, no dyskinesia.) Speech: Unremarkable Language: Adequate Fund of Knowledge: Adequate Attention and Concentration: Adequate Memory: Unremarkable Mood: Other (calm) Affect: Blunt Thought Process & Associations: Intact Thought Content: Appropriate Hallucination Type: Auditory ( internally stimulated) Delusion Type: None Suicidal Ideation: No Suicidal Plan: No Suicidal Intention: No Homicidal Ideation: No Homicidal Plan: No Homicidal Intention: No Insight: Poor Judgment: Poor Assessment and Plan - Assessment (1) Schizophrenia, paranoid, chronic with acute exacerbation Code(s): F20.0 - Paranoid schizophrenia Status: Acute - Plan Plan: Continue current tx plan Justification for Continued Inpatient Stay: Moving patient to a less restrictive environment may result in the patient's decompensation. Request Healthcare Surrogate/Guardian Advocate?: No
[2018-01-29 06:11] VITALS: BP 112/75; PULSE 100; RESP 17; TEMP 97.9; O2SAT 100
[2018-01-29] MEDS: risperiDONE 0.5 MG ODT PO SCH (08:12)
[2018-01-29] MEDS: risperiDONE 1 MG ODT PO SCH (08:12)
--- NOTE | 2018-01-29 10:02 | P.DSPSY ---
Psychiatry Discharge Summary Inpatient Psychiatric care?: Yes Advance Directives: No Mental Health Advance Directive: No Health Care Proxy: No - Admission Admission Date: January 22, 2018 14:24 - Admission Diagnosis (1) Unspecified psychosis Code(s): F29 - Unspecified psychosis not due to a substance or known physiological condition Brief History: Mr. Aly is a 42-year-old male with a reported history of schizophrenia who presented initially under a [place] act by law enforcement. I saw the patient in the ED and consultation and recommended transfer to [facility]. Apparently, no bed was available there and so the patient was admitted to the high acuity unit here at [facility] when a bed became available on our unit. Electronic medical record reviewed. Patient seen and examined with nurse and counselor. Chart reviewed. Case discussed with nursing staff. Case discussed with counselor. I was notified by the Department legal researcher that the patient's [place] act has as of 3 AM this morning. On my examination today, the patient is much more conversant and interactive compared to her previous contact. He presents as somewhat malodorous. He is anxious. He exhibits thought blocking. Paranoia is present. He admits to having audiovisual hallucinations "before" and remains internally stimulated now. When I ask him about why he was trying to break into cars in the [employer] parking lot he says "I was trying to get something to drink." He tells me that he needs to find a place to stay. No depressive or hypomanic/manic symptoms. Remainder of the psychiatric ROS is negative. No acute physical complaints. Past psychiatric history: The patient reports a history of schizophrenia. He followed with a psychiatrist in [place] but has been away from that state for over a year. He used to be on Risperdal and says that Risperdal was the only medication that really worked for him but he has been off of that medication for over a month. He reports that he was psychiatrically admitted years ago. He denies a history of suicide attempts. Family history: Patient denies a family history of serious mental illness or suicide. Chemical dependency history: The patient denies any abuse of drugs or alcohol. Social history: The patient moved from [place] a year ago. He is presently homeless. The nurse informs me that the patient was found with house keys and car keys, and when I ask him about these things he says that he used to have a place to stay and a Prius but he cannot go back there, nor can he have access to his car. When I try to ask him about why, he becomes quite paranoid and will not answer. He is high school educated. He collects $1000 per month in disability. He denies any history. He denies any legal history. He endorses scientology beliefs. He denies any history of abuse. Past medical history: The patient denies any history of medical problems. Medications: Patient takes no home medications. Allergies: Patient denies any allergies. Tobacco Use In Past 30 Days: No How Often Do You Have a Drink Containing Alcohol: Never Hospital Course: Patient was admitted to a locked, inpatient psychiatric unit. Appropriate precautions were in place throughout patient's hospital stay. Patient was seen and examined on the unit by psychiatry and also visited by counselor. Psychotropic medications were adjusted. Patient was started on oral Risperdal and did accept a modest dose titration but declined long-acting injectable. Patient had improvement in presenting psychiatric symptomatology during the course of his hospital stay. There was no evidence of any suicidality or homicidality on the inpatient unit. Patient's self-care improved with the benefit of psychopharmacologic treatment. On the day of discharge: Patient seen and examined with counselor and nurse. Chart reviewed. Case discussed with nursing staff who reports patient is somewhat more social and no behavioral problem. Case discussed with counselor who reports that the patient has been accepted into [facility] and has a bed there today. On my examination today, the patient feels improved from a psychiatric standpoint and is agreeable to going to [facility]. He denies any suicidal or homicidal ideation, intent or plan. Mood is stable and I can elicit no hypomanic or manic or depressive symptoms. He denies any audiovisual hallucinations. In particular he denies any command auditory hallucinations to hurt self/others. I can elicit no delusional material. He denies side effects from medications. He once again declines long-acting injectable antipsychotic when this is offered to him, preferring to continue with oral Risperdal as ordered. No physical complaints. Suicide and violence risk assessment on day of discharge both suggest lower imminent risk from mental illness and the patient's level of function is adequate for outpatient care. The patient has no acute risk factors : No suicidal or homicidal ideation, no severe depressive illness, no impairment in reality construction, no substance intoxication. We will bolster the patient's protective factors by referring him for outpatient mental health services. Patient has maximized benefit from this inpatient psychiatric hospital stay and will be discharged today with psychiatric follow-up as arranged by counselor. Patient is also to follow up with primary care. I have counseled the patient to abstain from substances of abuse. I have counseled the patient regarding warning signs for need to return to the psychiatric emergency room as part of a general safety plan. - Discharge Discharge Date: 01/29/18 - Discharge Diagnosis (1) Schizophrenia, paranoid, chronic with acute exacerbation Diagnosis: Principal (Stabilized) Code(s): F20.0 - Paranoid schizophrenia Status: Chronic Discharge Disposition: Home - Discharge Instructions Discharge Diet: Regular Diet Activities You Can Perform: Weight Bearing As Tolerat - Discharge Time <= 30 minutes Mental Status Examination Consciousness: Alert Orientation: x4 Motor Activity: Normal gait, Other (No hand tremor, no cogwheeling, no dystonia , no dyskinesia, no other motor abnormalities noted.) Speech: Unremarkable Language: Adequate Fund of Knowledge: Adequate Attention and Concentration: Adequate Memory: Unremarkable Mood: Appropriate Affect: Blunt Thought Process & Associations: Intact, Logical, Goal directed, Linear Thought Content: Appropriate Hallucination Type: None Delusion Type: None Suicidal Ideation: No Suicidal Plan: No Suicidal Intention: No Homicidal Ideation: No Homicidal Plan: No Homicidal Intention: No Mental Status Exam Remarks: Insight and judgment are perhaps fair. Discharge/Advance Care Plan - Results Vital Signs: Last Vital Signs Temp 97.9 F 01/29/18 06:00 Pulse 100 H 01/29/18 06:00 Resp 17 01/29/18 06:00 BP 112/75 01/29/18 06:00 Pulse Ox 100 01/29/18 06:00 Lab Results: Laboratory Results Hemoglobin A1c 5.2 % (4.3-6.0) 01/23/18 05:40 Triglycerides 85 mg/dL (42-150) 01/23/18 05:40 Cholesterol 146 mg/dL (120-200) 01/23/18 05:40 LDL Cholesterol, Calc 86 mg/dL (0-99) 01/23/18 05:40 HDL Cholesterol 43.5 mg/dL (40.0-60.0) 01/23/18 05:40 TSH 2.300 uIU/mL (0.358-3.740) 01/19/18 22:38 Urine Culture Comments Culture indicated 01/19/18 22:32 Summary of Procedures: None done. Imaging: ITS Impressions Chest X-Ray 01/20/18 00:00 CONCLUSION: 1. Minimal bibasilar airspace disease, likely atelectasis. Head CT 01/20/18 00:01 CONCLUSION: 1. No acute intracranial abnormality. . Pending Results: None - Medications Number of antipsychotic medications at discharge: 1 - Discharge Care Plan Goals to Promote Your Health: * To prevent worsening of your condition and complications * To maintain your health at the optimal level Directions to Meet Your Goals: Take your medications as prescribed Follow your dietary instruction Follow activity as directed Keep your appointments as scheduled Take your immunizations and boosters as scheduled If your symptoms worsen call your PCP, if no PCP go to Urgent Care Center or Emergency Room For 28/11 questions related to your inpatient stay or results of tests pending at discharge, please contact Dr. Dylan Benavides MD at [phone] Smoking is Dangerous to Your Health. Avoid second hand smoking
== END 2018-01-29 13:00 ==
LOC: NEPC 22:16 → NEPJ 01-20 14:58 → NEDA 01-22 14:24 → H270 01-22 16:49
PROVIDERS: ADMIT Psychiatry & Neurology Psychiatry; ATTEND Psychiatry & Neurology Psychiatry